=== PATIENT | female | born 1960 | race Caucasian/White ===

== ENCOUNTER 2024-10-19 16:29 | Emergency (ER) | payer OTHER ==
[2024-10-19 16:44] VITALS: BP 126/57; PULSE 66; RESP 18; TEMP 98.6; BMI 29.9
[2024-10-19] MEDS ORDERED: ACETAMINOPHEN 500 MG TABLET (FP) ONE (17:47)
[2024-10-19] MEDS: ACETAMINOPHEN 500 MG TABLET (FP) PO ONE (17:49)
== END 2024-10-19 19:44 | disposition home or self-care (01) ==
LOC: JERFT 16:29
DX: S92.411A Displaced fracture of proximal phalanx of right great toe, initial encounter for closed fracture (principal); W01.0XXA Fall on same level from slipping, tripping and stumbling without subsequent striking against object, initial encounter
CPT/HCPCS: 73630-TC-LT; 99284-25